=== PATIENT | female | born 1970 | race Native Hawaiian/Other Pacific Islander ===

== ENCOUNTER 2016-08-25 07:59 | Outpatient (CLI) | payer OTHER | END 2016-08-25 23:31 | disposition home or self-care (01) | LOC: MRI 07:59 | DX: G35 Multiple sclerosis (principal) | CPT/HCPCS: A9576 ==

== ENCOUNTER 2016-09-18 14:33 | Observation (INO) | payer OTHER ==
[~2016-09-18] VITALS: Ht 162.6 cm; Wt 137.9 kg
[2016-09-18 16:26] LABS: PLATELET COUNT 241 K/uL (152-353)
[2016-09-18] MEDS ORDERED: DIAZ2TAB PO (16:29)
[2016-09-18 16:30] VITALS: BP 144/69; TEMP 98; Ht 162.6 cm; Wt 137.9 kg
[2016-09-18] MEDS ORDERED: MECLIZINE25 M1 PO (16:30)
[2016-09-18] MEDS ORDERED: FLUTICASONE50 MCG NAS (16:30)
[2016-09-18 17:16] LABS: POTASSIUM 3.7 mmol/L (3.6-5.2); SODIUM 134 mmol/L (136-145)
[2016-09-18 20:00] VITALS: BP 140/82; TEMP 98.7
[2016-09-19 00:18] VITALS: BP 114/51; TEMP 98.1
[2016-09-19 04:00] VITALS: BP 115/59; TEMP 98.1
[2016-09-19 07:12] LABS: PLATELET COUNT 194 K/uL (152-353)
[2016-09-19 07:15] LABS: POTASSIUM 3.3 mmol/L (3.6-5.2); SODIUM 132 mmol/L (136-145)
[2016-09-19 08:00] VITALS: BP 152/65; TEMP 98.2
[2016-09-19 12:00] VITALS: BP 120/69; TEMP 98.1
== END 2016-09-19 16:50 | disposition home or self-care (01) ==
LOC: MED/SURG 14:33
PROVIDERS: Emergency Medicine; ADMIT Internal Medicine
DX: J06.9 Acute upper respiratory infection, unspecified (principal); J40 Bronchitis, not specified as acute or chronic
CPT/HCPCS: 36415; 36591; 80048; 80053; 83735; 85027; 86615; 87040; 87070; 87205; 93005; 94640; 94664; 94760; 96365; 96367; 99220; G0378; G0379; J0456; J0696; J1885

== ENCOUNTER 2017-02-02 19:59 | Emergency (ER) | payer OTHER ==
[~2017-02-02] VITALS: Ht 162.6 cm; Wt 144.7 kg
[~2017-02-02 19:59] MED LIST: DIAZ2TAB PO; FLUTICASONE50 MCG NAS; MECLIZINE25 M1 PO
[2017-02-02 22:34] VITALS: BP 134/90; TEMP 98.2
== END 2017-02-02 22:38 | disposition home or self-care (01) ==
LOC: ED 19:59
DX: S80.02XA Contusion of left knee, initial encounter (principal); S00.83XA Contusion of other part of head, initial encounter; S20.212A Contusion of left front wall of thorax, initial encounter; W18.39XA Other fall on same level, initial encounter; Y92.098 Other place in other non-institutional residence as the place of occurrence of the external cause
CPT/HCPCS: 99283

== ENCOUNTER 2017-02-03 14:03 | Outpatient (CLI) | payer OTHER ==
[2017-02-03 14:44] LABS: PLATELET COUNT 250 K/uL (152-353)
[2017-02-03 15:01] LABS: POTASSIUM 3.7 mmol/L (3.6-5.2); SODIUM 138 mmol/L (136-145)
== END 2017-02-03 19:06 | disposition home or self-care (01) ==
LOC: LABW 14:03
PROVIDERS: Internal Medicine
DX: R90.89 Other abnormal findings on diagnostic imaging of central nervous system (principal)
CPT/HCPCS: 36415; 80053; 81000; 84443; 85027; 85651; 86140

== ENCOUNTER 2017-02-10 10:26 | Outpatient (CLI) | payer OTHER | END 2017-02-10 11:30 | disposition home or self-care (01) | LOC: MRI 10:26 | DX: R90.89 Other abnormal findings on diagnostic imaging of central nervous system (principal) | CPT/HCPCS: A9576 ==

== ENCOUNTER 2017-02-15 16:36 | Outpatient (CLI) | payer OTHER | END 2017-02-15 18:00 | disposition home or self-care (01) | LOC: CT 16:36 | DX: R10.12 Left upper quadrant pain (principal) ==

== ENCOUNTER 2018-05-03 14:12 | Outpatient (CLI) | payer OTHER ==
[2018-05-03 14:52] LABS: PLATELET COUNT 243 K/uL (152-353)
[2018-05-03 15:11] LABS: POTASSIUM 3.8 mmol/L (3.6-5.2)
== END 2018-05-03 23:06 | disposition home or self-care (01) ==
LOC: LABW 14:12
PROVIDERS: Internal Medicine
DX: Z00.8 Encounter for other general examination (principal); R73.9 Hyperglycemia, unspecified
CPT/HCPCS: 36415; 80053; 85027

== ENCOUNTER 2018-05-04 13:58 | Outpatient (CLI) | payer OTHER | END 2018-05-04 20:41 | disposition home or self-care (01) | LOC: MRI 13:58 | DX: R42 Dizziness and giddiness (principal); R90.89 Other abnormal findings on diagnostic imaging of central nervous system | CPT/HCPCS: A9576 ==

== ENCOUNTER 2018-08-05 11:25 | Outpatient (CLI) | payer OTHER ==
[2018-08-05 11:42] LABS: PLATELET COUNT 238 K/uL (152-353)
[2018-08-05 12:06] LABS: POTASSIUM 3.8 mmol/L (3.6-5.2)
== END 2018-08-05 23:23 | disposition home or self-care (01) ==
LOC: LABW 11:25
PROVIDERS: Physician Assistant
DX: Z01.810 Encounter for preprocedural cardiovascular examination (principal); R94.6 Abnormal results of thyroid function studies
CPT/HCPCS: 36415; 80053; 84439; 84443; 85027; 85610

== ENCOUNTER 2018-09-02 14:29 | Outpatient (CLI) | payer OTHER | END 2018-09-02 23:00 | disposition home or self-care (01) | LOC: RAD 14:29 | DX: J18.9 Pneumonia, unspecified organism (principal) ==

== ENCOUNTER 2019-02-22 11:55 | Outpatient (CLI) | payer OTHER | END 2019-02-22 23:47 | disposition home or self-care (01) | LOC: RAD 11:55 | DX: M54.2 Cervicalgia (principal) ==

== ENCOUNTER 2019-04-02 15:07 | Emergency (ER) | payer OTHER ==
[~2019-04-02] VITALS: Ht 162.6 cm; Wt 137.4 kg
[2019-04-02 16:06] LABS: PLATELET COUNT 254 K/uL (152-353)
[2019-04-02 16:23] LABS: PARTIAL THROMBOPLASTIN TIME 25.9 SECONDS (24.5-33.6)
[2019-04-02 16:31] LABS: POTASSIUM 4.4 mmol/L (3.6-5.2); SODIUM 138 mmol/L (136-145)
[2019-04-02 18:12] VITALS: BP 121/65; TEMP 98.7
== END 2019-04-02 18:23 | disposition home or self-care (01) ==
LOC: ED 15:07
PROVIDERS: Hospitalist
DX: J40 Bronchitis, not specified as acute or chronic (principal); J06.9 Acute upper respiratory infection, unspecified; R06.02 Shortness of breath
CPT/HCPCS: 80053; 82550; 83880; 84484; 85027; 85610; 85730; 96365; 96375; 99284; J0696; J2930

== ENCOUNTER 2019-04-14 13:30 | Outpatient (CLI) | payer OTHER | END 2019-04-14 22:52 | disposition home or self-care (01) | LOC: RAD 13:30 | DX: R05 Cough (principal) ==

== ENCOUNTER 2019-05-01 11:49 | Outpatient (CLI) | payer OTHER ==
[2019-05-01 12:34] LABS: PLATELET COUNT 300 K/uL (152-353)
[2019-05-01 12:55] LABS: POTASSIUM 3.5 mmol/L (3.6-5.2); SODIUM 139 mmol/L (136-145)
== END 2019-05-01 19:45 | disposition home or self-care (01) ==
LOC: LABW 11:49
PROVIDERS: Internal Medicine
DX: J40 Bronchitis, not specified as acute or chronic (principal); R29.898 Other symptoms and signs involving the musculoskeletal system; R06.02 Shortness of breath; Z79.899 Other long term (current) drug therapy
CPT/HCPCS: 36415; 80053; 82553; 83735; 83880; 84439; 84443; 85027; 85379

== ENCOUNTER 2019-05-25 11:03 | Outpatient (CLI) | payer OTHER | END 2019-05-25 23:30 | disposition home or self-care (01) | LOC: RAD 11:03 | DX: M54.5 Low back pain (principal) ==

== ENCOUNTER 2019-05-26 10:15 | Outpatient (CLI) | payer OTHER ==
[2019-05-26 11:19] LABS: PLATELET COUNT 264 K/uL (152-353)
[2019-05-26 11:41] LABS: POTASSIUM 4.1 mmol/L (3.6-5.2)
== END 2019-05-26 21:56 | disposition home or self-care (01) ==
LOC: LABW 10:15
PROVIDERS: Internal Medicine
DX: M54.5 Low back pain (principal); R79.89 Other specified abnormal findings of blood chemistry; Z79.899 Other long term (current) drug therapy
CPT/HCPCS: 36415; 80053; 81000; 84443; 85027

== ENCOUNTER 2019-06-22 15:42 | Outpatient (CLI) | payer OTHER ==
[2019-06-22 16:10] LABS: PLATELET COUNT 290 K/uL (152-353)
[2019-06-22 16:49] LABS: POTASSIUM 4.2 mmol/L (3.6-5.2)
== END 2019-06-22 19:18 | disposition home or self-care (01) ==
LOC: LABW 15:42
PROVIDERS: Internal Medicine
DX: J01.11 Acute recurrent frontal sinusitis (principal); R53.82 Chronic fatigue, unspecified
CPT/HCPCS: 36415; 80053; 84439; 84443; 85027; 85651

== ENCOUNTER 2019-07-10 08:52 | Outpatient (CLI) | payer OTHER | END 2019-07-10 19:22 | disposition home or self-care (01) | LOC: LABW 08:52 | DX: R53.83 Other fatigue (principal) | CPT/HCPCS: 36415; 84439; 84443; 86308 ==

== ENCOUNTER 2019-08-25 10:51 | Outpatient (CLI) | payer OTHER ==
[2019-08-25 11:28] LABS: PLATELET COUNT 253 K/uL (152-353)
== END 2019-08-25 19:45 | disposition home or self-care (01) ==
LOC: LABW 10:51
PROVIDERS: Internal Medicine
DX: R53.83 Other fatigue (principal)
CPT/HCPCS: 36415; 80053; 82085; 82550; 85027; 85651; 86038; 86140

== ENCOUNTER 2019-12-28 10:01 | Outpatient (CLI) | payer OTHER | END 2019-12-28 18:57 | disposition home or self-care (01) | LOC: LABW 10:01 | DX: E03.9 Hypothyroidism, unspecified (principal) | CPT/HCPCS: 36415; 84439; 84443 ==

== ENCOUNTER 2020-01-23 15:34 | Outpatient (CLI) | payer OTHER | END 2020-01-23 21:33 | disposition home or self-care (01) | LOC: LABW 15:34 | DX: R42 Dizziness and giddiness (principal) | CPT/HCPCS: 36415; 84207 ==

== ENCOUNTER 2020-05-29 07:45 | Outpatient (CLI) | payer OTHER | END 2020-05-29 23:19 | disposition home or self-care (01) | LOC: LABW 07:45 | DX: R42 Dizziness and giddiness (principal); R90.82 White matter disease, unspecified; E03.8 Other specified hypothyroidism | CPT/HCPCS: 36415; 82565; 82784; 84439; 84443; 84520; 86335 ==

== ENCOUNTER 2020-06-03 08:05 | Outpatient (CLI) | payer OTHER | END 2020-06-03 23:22 | disposition home or self-care (01) | LOC: MRI 08:05 | DX: R42 Dizziness and giddiness (principal); R90.82 White matter disease, unspecified; M54.16 Radiculopathy, lumbar region | CPT/HCPCS: Q9963 ==

== ENCOUNTER 2020-06-05 08:18 | Outpatient (CLI) | payer OTHER | END 2020-06-05 21:31 | disposition home or self-care (01) | LOC: MRI 08:18 | DX: R42 Dizziness and giddiness (principal); R90.82 White matter disease, unspecified; M54.16 Radiculopathy, lumbar region | CPT/HCPCS: A9576 ==

== ENCOUNTER 2020-08-26 08:30 | Outpatient (CLI) | payer OTHER | END 2020-08-26 18:57 | disposition home or self-care (01) | LOC: LABW 08:30 | PROVIDERS: ATTEND Internal Medicine | DX: E03.8 Other specified hypothyroidism (principal) | CPT/HCPCS: 36415; 84439; 84443 ==

== ENCOUNTER 2020-09-27 08:47 | Outpatient (CLI) | payer OTHER | END 2020-09-27 20:52 | disposition home or self-care (01) | LOC: CT 08:47 | PROVIDERS: ATTEND Psychiatry & Neurology Neurology | DX: R42 Dizziness and giddiness (principal) | CPT/HCPCS: 36415; 82565; 84520; Q9963 ==

== ENCOUNTER 2021-03-05 08:07 | Outpatient (CLI) | payer OTHER | END 2021-03-05 13:12 | disposition home or self-care (01) | LOC: LAB 08:07 | PROVIDERS: ATTEND Internal Medicine | DX: Z20.822 Contact with and (suspected) exposure to COVID-19 (principal) | CPT/HCPCS: 87635; G2023; U0003 ==

== ENCOUNTER 2021-03-30 00:20 | Emergency (ER) | payer OTHER ==
[~2021-03-30] VITALS: Ht 162.6 cm; Wt 142.9 kg
[2021-03-30 01:40] LABS: PLATELET COUNT 188 K/uL (152-353)
[2021-03-30 01:46] LABS: POTASSIUM 3.5 mmol/L (3.6-5.2); SODIUM 141 mmol/L (136-145)
[2021-03-30 02:12] LABS: PARTIAL THROMBOPLASTIN TIME 26.5 SECONDS (24.5-33.6)
[2021-03-31 05:12] LABS: PLATELET COUNT 187 K/uL (152-353)
[2021-03-31 06:12] LABS: POTASSIUM 4.1 mmol/L (3.6-5.2)
[2021-03-31 07:20] VITALS: TEMP 97.6
[2021-03-31 10:00] VITALS: BP 158/79
== END 2021-03-31 10:30 | disposition home or self-care (01) ==
LOC: ED 00:27
PROVIDERS: Family Medicine; Internal Medicine Endocrinology, Diabetes & Metabolism
DX: R07.89 Other chest pain (principal); I48.91 Unspecified atrial fibrillation; R06.02 Shortness of breath; Z20.822 Contact with and (suspected) exposure to COVID-19
CPT/HCPCS: 36415; 80048; 80053; 81000; 82550; 83880; 84443; 84484; 85027; 85379; 85610; 85730; 87086; 87088; 87635; 96372; 96374; 96375; 99284; J1650; J1885; J2270; U0003

== ENCOUNTER 2021-05-02 08:53 | Outpatient (CLI) | payer OTHER | END 2021-05-02 19:00 | disposition home or self-care (01) | LOC: MAMMO 08:53 | PROVIDERS: ATTEND Internal Medicine | DX: Z12.31 Encounter for screening mammogram for malignant neoplasm of breast (principal); Z13.820 Encounter for screening for osteoporosis; Z78.0 Asymptomatic menopausal state ==

== ENCOUNTER 2021-05-15 09:57 | Outpatient (CLI) | payer OTHER | END 2021-05-15 19:24 | disposition home or self-care (01) | LOC: MAMMO 09:57 | PROVIDERS: ATTEND Internal Medicine | DX: R92.8 Other abnormal and inconclusive findings on diagnostic imaging of breast (principal) ==

== ENCOUNTER 2021-07-07 14:14 | Outpatient (CLI) | payer OTHER | END 2021-07-07 19:23 | disposition home or self-care (01) | LOC: RAD 14:14 | PROVIDERS: ATTEND Internal Medicine | DX: J40 Bronchitis, not specified as acute or chronic (principal) ==

== ENCOUNTER 2021-07-13 03:57 | Emergency (ER) | payer OTHER ==
[~2021-07-13] VITALS: Ht 162.6 cm; Wt 148.8 kg
[2021-07-13 04:57] LABS: PLATELET COUNT 295 K/uL (152-353)
[2021-07-13 05:01] LABS: POTASSIUM 3.9 mmol/L (3.6-5.2)
[2021-07-13 07:19] VITALS: BP 145/74; TEMP 98.3
== END 2021-07-13 07:19 | disposition home or self-care (01) ==
LOC: ED 03:57
PROVIDERS: Family Medicine
DX: N13.2 Hydronephrosis with renal and ureteral calculous obstruction (principal); N39.0 Urinary tract infection, site not specified
CPT/HCPCS: 36415; 80053; 81000; 82150; 83690; 85027; 87086; 87088; 96360; 96375; 99284; J1885; J2405

== ENCOUNTER 2021-08-14 11:42 | Outpatient (CLI) | payer OTHER | END 2021-08-14 19:11 | disposition home or self-care (01) | LOC: LAB 11:42 | PROVIDERS: ATTEND Internal Medicine | DX: Z20.822 Contact with and (suspected) exposure to COVID-19 (principal) | CPT/HCPCS: 87635; G2023; U0003 ==

== ENCOUNTER 2021-08-21 12:18 | Outpatient (CLI) | payer OTHER ==
[2021-08-21 12:58] LABS: PLATELET COUNT 224 K/uL (152-353)
[2021-08-21 13:32] LABS: POTASSIUM 4.2 mmol/L (3.6-5.2)
== END 2021-08-21 19:11 | disposition home or self-care (01) ==
LOC: LAB 12:18
PROVIDERS: ATTEND Internal Medicine
DX: I10 Essential (primary) hypertension (principal); E78.2 Mixed hyperlipidemia; E55.9 Vitamin D deficiency, unspecified
CPT/HCPCS: 80053; 80061; 82306; 84439; 84443; 85027

== ENCOUNTER 2021-08-28 09:20 | Outpatient (CLI) | payer OTHER | END 2021-08-28 20:45 | disposition home or self-care (01) | LOC: MRI 09:20 | PROVIDERS: ATTEND Nurse Practitioner Adult Health | DX: R90.82 White matter disease, unspecified (principal); R51.9 Headache, unspecified ==

== ENCOUNTER 2021-09-29 08:45 | Outpatient (CLI) | payer OTHER ==
[2021-09-29 10:06] LABS: PLATELET COUNT 220 K/uL (152-353)
[2021-09-29 10:36] LABS: POTASSIUM 4.4 mmol/L (3.6-5.2)
== END 2021-09-29 18:47 | disposition home or self-care (01) ==
LOC: LABW 08:45
PROVIDERS: ATTEND Internal Medicine Pulmonary Disease
DX: L65.9 Nonscarring hair loss, unspecified (principal); Z79.899 Other long term (current) drug therapy; R06.09 Other forms of dyspnea; J45.909 Unspecified asthma, uncomplicated
CPT/HCPCS: 36415; 80053; 82103; 82104; 82306; 82626; 82728; 82785; 83540; 83550; 84270; 84402; 84403; 84439; 84443; 85027; 86038; 86376; 86800

== ENCOUNTER 2021-10-31 11:38 | Outpatient (CLI) | payer OTHER ==
[2021-10-31 12:13] LABS: POTASSIUM 4.5 mmol/L (3.6-5.2)
== END 2021-10-31 20:54 | disposition home or self-care (01) ==
LOC: LAB 11:38
PROVIDERS: ATTEND Internal Medicine
DX: E78.2 Mixed hyperlipidemia (principal); R79.89 Other specified abnormal findings of blood chemistry
CPT/HCPCS: 80053; 80061

== ENCOUNTER 2022-02-05 12:27 | Outpatient (CLI) | payer OTHER ==
[2022-02-05 12:55] LABS: PLATELET COUNT 296 K/uL (152-353)
== END 2022-02-05 19:02 | disposition home or self-care (01) ==
LOC: LAB 12:27
PROVIDERS: ATTEND Internal Medicine
DX: Z90.3 Acquired absence of stomach [part of] (principal); Z79.899 Other long term (current) drug therapy
CPT/HCPCS: 80053; 85027

== ENCOUNTER 2022-03-05 11:14 | Outpatient (CLI) | payer OTHER | END 2022-03-05 20:55 | disposition home or self-care (01) | LOC: LAB 11:14 | PROVIDERS: ATTEND Internal Medicine | DX: T81.31XA Disruption of external operation (surgical) wound, not elsewhere classified, initial encounter (principal); E03.8 Other specified hypothyroidism | CPT/HCPCS: 84439; 84443 ==

== ENCOUNTER 2022-06-09 09:22 | Outpatient (CLI) | payer OTHER | END 2022-06-09 19:14 | disposition home or self-care (01) | LOC: MAMMO 09:22 | PROVIDERS: ATTEND Internal Medicine | DX: Z12.31 Encounter for screening mammogram for malignant neoplasm of breast (principal) ==

== ENCOUNTER 2022-06-29 07:35 | Outpatient (CLI) | payer OTHER ==
[2022-06-29 08:01] LABS: PLATELET COUNT 187 K/uL (152-353)
== END 2022-06-29 19:34 | disposition home or self-care (01) ==
LOC: LABW 07:35
PROVIDERS: ATTEND Surgery
DX: K91.2 Postsurgical malabsorption, not elsewhere classified (principal); R53.83 Other fatigue; E66.01 Morbid (severe) obesity due to excess calories; Z79.899 Other long term (current) drug therapy
CPT/HCPCS: 36415; 80053; 80061; 82306; 82607; 82728; 82746; 82977; 83540; 83550; 83615; 83735; 84100; 84436; 84443; 84479; 84590; 84630; 85027

== ENCOUNTER 2022-11-26 07:38 | Outpatient (CLI) | payer OTHER ==
[2022-11-26 08:07] LABS: PLATELET COUNT 249 K/uL (152-353)
[2022-11-26 08:50] LABS: POTASSIUM 4.2 mmol/L (3.6-5.2)
== END 2022-11-26 17:00 | disposition home or self-care (01) ==
LOC: LABW 07:38
PROVIDERS: ATTEND Surgery
DX: K91.2 Postsurgical malabsorption, not elsewhere classified (principal); R53.83 Other fatigue; E66.01 Morbid (severe) obesity due to excess calories; Z79.899 Other long term (current) drug therapy
CPT/HCPCS: 36415; 80053; 80061; 82306; 82607; 82728; 82746; 82977; 83036; 83540; 83550; 83615; 83735; 84100; 84425; 84436; 84443; 84479; 84590; 84630; 85027